=== PATIENT | female | born 1990 | race African-American/Black ===

== ENCOUNTER 2018-11-22 00:30 | Emergency (ER) | payer SELFPAY ==
[~2018-11-22] VITALS: Ht 160 cm; Wt 54.0 kg
[2018-11-22 00:58] VITALS: BP 111/69
--- NOTE | 2018-11-22 01:21 | PHYS DOC ---
Past Medical History Past Medical History: No Pertinent History Past Surgical History: No Surgical History Alcohol Use: Occasionally Drug Use: Marijuana Adult General Chief Complaint Chief Complaint: MULTIPLE COMPLAINTS HPI HPI 28-year-old otherwise healthy female presents with a week and a half history of a dry cough stuffy nose red eyes and a scratchy throat. She hasn't had any fever chills or sweats. She states she's noticed some mold from a water leak under bed. She is also complaining of having decreased energy throughout the day.[] Review of Systems Review of Systems Constitutional: Denies fever or chills [] Eyes: Some eye redness[] HENT: Per history of present illness[] Respiratory: Per history of present illness[] Cardiovascular: No additional information not addressed in HPI [] GI: Denies abdominal pain, nausea, vomiting, bloody stools or diarrhea [] : Denies dysuria or hematuria [] All other systems were reviewed and found to be within normal limits, except as documented in this note. Allergies Allergies Allergies Coded Allergies Type Severity Reaction Last Updated Verified No Known Drug Allergies 12/20/15 No Physical Exam Physical Exam Constitutional: Well developed, well nourished, no acute distress, non-toxic appearance. [] HENT: Normocephalic, atraumatic, bilateral external ears normal, oropharynx moist, no oral exudates, nose normal. [] Eyes: PERRLA, EOMI, conjunctiva normal, no discharge. [] [] [] Lungs & Thorax: No respiratory distress[] [] Skin: Warm, dry, no erythema, no rash. [] [] Extremities: No tenderness, no cyanosis, no clubbing, ROM intact, no edema. [] Neurologic: Alert and oriented X 3, normal motor function, [] Psychologic: Anxious[] Current Patient Data Vital Signs Vital Signs Date Time Temp Pulse Resp B/P (MAP) Pulse Ox O2 Delivery O2 Flow Rate FiO2 11/22/18 00:58 98.6 84 16 111/69 (83) 99 Room Air 98.6 EKG EKG [] Radiology/Procedures Radiology/Procedures [] Course & Med Decision Making Course & Med Decision Making Pertinent Labs and Imaging studies reviewed. (See chart for details) [] Dragon Disclaimer Dragon Disclaimer This electronic medical record was generated, in whole or in part, using a voice recognition dictation system. Departure Departure Impression: Primary Impression: Seasonal allergic reaction Disposition: HOME, SELF-CARE Condition: STABLE Referrals: NO PCP (PCP) Patient Instructions: Allergies, Generic Additional Instructions: Return to the emergency department with any new or concerning symptoms ABHI CARRION DO Nov 22, 2018 01:21
== END 2018-11-22 01:20 | disposition home or self-care (01) ==
LOC: ER 00:30
DX: J30.2 Other seasonal allergic rhinitis (principal)
CPT/HCPCS: 99281